=== PATIENT | female | born 1955 | race Caucasian/White ===

== ENCOUNTER 2018-03-07 11:05 | Emergency (ER) | payer OTHER ==
[~2018-03-07] VITALS: Ht 170.2 cm; Wt 74.8 kg
[2018-03-07] MEDS ORDERED: METFORMIN HCL1000 MG PO (11:21)
[2018-03-07] MEDS ORDERED: VICTOZA 2-0.6 MG/0.1 (11:22)
[2018-03-07] MEDS ORDERED: ZOCOR40 MG PO (11:22)
[2018-03-07] MEDS ORDERED: COZAAR25 MG PO (11:22)
[2018-03-07] MEDS ORDERED: ARMOUR THYROID30 M1 PO (11:23)
[2018-03-07] MEDS ORDERED: LUNESTA3 MG PO (11:23)
[2018-03-07] MEDS ORDERED: CLONAZEPAM0.125 MG PO (11:24)
[2018-03-07] MEDS ORDERED: DICY20TA PO (11:24)
== END 2018-03-07 16:22 | disposition home or self-care (01) ==
LOC: ER 11:05
DX: N39.0 Urinary tract infection, site not specified (principal)